=== PATIENT | male | born 1995 | race Caucasian/White ===

== ENCOUNTER 2017-12-24 23:10 | Emergency (ER) | payer OTHER, SELFPAY ==
[2017-12-24 23:13] VITALS: BP 104/68; PULSE 74; RESP 14; TEMP 36.3; O2SAT 98; BMI 19.8
--- NOTE | 2017-12-24 23:32 | ED.VIS.GEN ---
History of Present Illness Chief Complaint: ETOH Intox Informant: Patient Onset: Today Context: Gradual Onset Timing: Continuous Current Severity: Severe Maximum Severity: Severe Associated Symptoms: vomiting Narrative: Patient was drinking vodka heavily tonight at his home. Presents by EMS, alone. History is limited because he is extremely intoxicated. States I drink too much. Past Medical History - Allergies and Home Meds Allergies/Adverse Reactions: Allergies No Known Allergies Allergy (Verified 12/24/17 23:16) Primary Care Physician: NOT,DEFINED [Primary Care Provider] - Past Medical History: None Lives: Alone Alcohol: Heavy Review of Systems ROS: Unable to Obtain Physical Exam Vital Signs/Narrative: Vital Signs Temp Pulse Resp BP Pulse Ox 12/24/17 23:13 97.4 F L 74 14 104/68 98 General: Well nourished, Well developed Head: Normocephalic, Atraumatic Eyes: Perrl - With horizontal nystagmus, EOMI ENT: Moist mucous membranes Neck: Supple, Nontender Cardiovascular: Regular rate, Regular rhythm, No murmurs Respiratory: No distress, CTA bilaterally, Chest nontender Abdomen: Soft, Nontender, Nondistended, Normal bowel sounds, - - Emesis on clothing Back: Nontender, Normal Inspection Extremities: Nontender, No edema Skin: Normal color, No rash. Negative for: Trauma Neurological: Lethargic - Easily alerts to voice Psychological: Normal affect Diagnostic/Tx/Re-eval - Medical Decision Making Patient was monitored for almost 3 hours when he woke up and was coherent, conversive, ambulatory. He wanted to leave. We told him that given his condition, that would be okay only if he has someone to pick him up and take him home. He is calling for a ride. If he does not get a ride, he will be allowed to rest until morning, when he is more likely to be closer to sober. ED Disposition - Plan for ED Patient: Disposition: Home or Assisted Living Chief Complaint: ETOH Intox Diagnosis: Alcohol intoxication Instructions: ED Overdose Alcohol Referrals: Piedad Campos [NON-STAFF] - As Needed
[2017-12-25] MEDS: Ondansetron 4 MG/2 ML Vial IV (00:05)
[2017-12-25] MEDS: 0.9% Normal Saline 1,000 ML 999 ML IV (00:06)
[2017-12-25 00:10] VITALS: BP 95/64; PULSE 85; RESP 12; O2SAT 98
[2017-12-25 01:51] VITALS: BP 125/73; PULSE 97; RESP 16; O2SAT 100
== END 2017-12-25 02:14 | disposition home or self-care (01) ==
PROVIDERS: Emergency Provider Emergency Medicine
DX: F10.129 Alcohol abuse with intoxication, unspecified (principal); Y90.9 Presence of alcohol in blood, level not specified
CPT/HCPCS: 96361; 96374; 99284; J7030; A4216; J2405